=== PATIENT | male | born 1975 | race Caucasian/White ===

== ENCOUNTER 2016-08-04 17:24 | Emergency (ER) | payer BC, MEDICAID ==
[2016-08-04] MEDS ORDERED: IBUPROFEN 400 MG TABLET PO ONE (18:27)
[2016-08-04] MEDS ORDERED: CLINDAMYCIN 600MG/50ML PREMIX 600 MG in DEXTROSE 1 BAG IV ONE (18:27)
--- NOTE | 2016-08-04 18:31 | Emergency Department Record ---
History of Present Illness - General Stated complaint: SPIDER BITE/RASH Time Seen by Provider: 08/04/16 18:26 Source: Patient Mode of Arrival: Ambulatory Limitations: No limitations - History of Present Illness Initial comments: 41 yo male presents to ED with a CC of redness and swelling from a possible "spider bite" that began 2 days ago. Patient reports that his redness and swelling worsened today extending up the upper arm, states "I just don't feel well", denies fevers, chills, or weakness. Patient reports a history of psoriatic arthritis, but denies the use of immuno-suppressant medications. MD complaint: Insect bite/sting Onset/Timin -: Days(s) Hx Tetanus Toxoid Vaccination: Yes Year of Tetanus Vaccination: 2012 Location: [facility] Severity: Moderate Quality: Burning Consistency: Constant Improves with: None Worsens with: None Associated symptoms: Denies other symptoms Treatments Prior to Arrival: None - Related Data Previous Rx's Medication Instructions Recorded Clindamycin HCl [Cleocin HCl] 300 mg PO QID #40 capsule 08/04/16 Allergies Allergy/AdvReac Type Severity Reaction Status Date / Time trimethobenzamide HCl Allergy Severe DIFFICULTY Verified 08/04/16 18:31 [From Tigan] BREATHING Penicillins Allergy Intermediate HIVES Verified 08/04/16 18:31 Sulfa (Sulfonamide Allergy Intermediate HIVES Verified 08/04/16 18:31 Antibiotics) Review of Systems Constitutional: Reports: Malaise. Denies: Chills, Fever, Night sweats Eyes: Denies: Eye discharge, Eye pain ENT: Denies: Congestion, Ear pain, Epistaxis Respiratory: Denies: Cough, Dyspnea Cardiovascular: Denies: Chest pain, Dyspnea on exertion Endocrine: Denies: Fatigue, Heat or cold intolerance Gastrointestinal: Denies: Abdominal pain, Nausea, Vomiting Genitourinary: Denies: Incontinence, Retention Musculoskeletal: Denies: Arthralgia, Back pain, Gout, Joint swelling Skin: Reports: Change in color (redness). Denies: Bruising, Change in hair/ nails Neurological: Denies: Abnormal gait, Confusion, Headache, Tingling Psychiatric: Denies: Anxiety Hematological/Lymphatic: Denies: Anemia, Blood Clots Past Medical History - SOCIAL HISTORY Smoking Status: Current every day smoker - RESPIRATORY Hx Respiratory Disorders: No - CARDIOVASCULAR Hx Irregular Heartbeat: Yes - NEURO Hx Neuro Disorders: No - GI Hx GI Disorders: No - Hx Genitourinary Disorders: No - ENDOCRINE Hx Endocrine Disorders: No - MUSCULOSKELETAL Hx Musculoskeletal Disorders: Yes Hx Arthritis: Yes (psoriatic) Comment:: degenerative bone disease - PSYCH Hx Anxiety: Yes - HEMATOLOGY/ONCOLOGY Hx Hematology/Oncology Disorders: No Family Medical History Hx Cancer: Mother *Cancer Comment: melanoma Physical Exam - General General Appearance: Alert, Oriented x3, Cooperative Limitations: No limitations - Head Head exam: Atraumatic, Normocephalic, Normal inspection Head exam detail: negative: Abrasion, Contusion, Lantigua's sign, General tenderness, Hematoma, Laceration - Eye Eye exam: Normal appearance. negative: Conjunctival injection, Periorbital swelling, Periorbital tenderness, Scleral icterus - ENT Ear exam: negative: Auricular hematoma, Auricular trauma Nasal Exam: negative: Active bleeding, Discharge, Dried blood, Foreign body Mouth exam: negative: Drooling, Laceration, Muffled voice, Tongue elevation - Neck Neck exam: Normal inspection. negative: Tenderness - Respiratory Respiratory exam: Normal lung sounds bilaterally. negative: Respiratory distress, Rhonchi, Stridor, Wheezes - Cardiovascular Cardiovascular Exam: Regular rate, Normal rhythm, Normal heart sounds Peripheral Pulses: 3+: Radial (R) - GI/Abdominal GI/Abdominal exam: Soft. negative: Rebound, Rigid, Tenderness - Rectal Rectal exam: Deferred - exam: Deferred - Extremities Extremities exam: Tenderness, Other (STS, erythema, and edema originating from the dorsal proximal forearm and extending to the mid-upper arm proximally, mid- to-distal forearm distally, no evidence for compartment syndrom on examination, strong distal radial pulse. No abscess is present.). negative: Calf tenderness , Pedal edema - Back Back exam: Denies: CVA tenderness (R), CVA tenderness (L) - Neurological Neurological exam: Alert, Normal gait, Oriented X3 - Psychiatric Psychiatric exam: Normal affect, Normal mood Course - Reevaluation(s) Reevaluation #1: 08/04/16 19:31 Labs reviewed, CRP 5.2, otherwise labs are grossly unremarkable for an acute process. Discussed admission with the patient, patient declined due to numerous obligations at home. Patient is willing to return for repeat antibiotics in 12 hours, Clindamycin sent to pharmacy for continued outpatient treatment. Cellulitis was outlined prior to discharge as well to determine progress of improvement. Medical Decision Making - Lab Data Result diagrams: 08/04/16 18:57 08/04/16 18:44 Disposition Disposition: Discharge Clinical Impression: Cellulitis of right upper extremity Disposition: Home, Self-Care Condition: (2) Stable Instructions: Cellulitis (ED) Additional Instructions: Return to ED in 12 hours for repeat examination and repeat antibiotics. Clindamicin as directed. Follow-up with your family doctor in 1-3 days as directed. Prescriptions: Clindamycin HCl [Cleocin HCl] 300 mg PO QID #40 capsule Forms: Patient Portal Access Time of Disposition: 19:34
[2016-08-04 18:53] LABS: BASO % 0.2 % (0-6); EOS % 6.8 % (0-6); GRAN % 64.4 % (47-80); HEMATOCRIT 41.1 % (42.0-52.0); HEMOGLOBIN 13.6 gm/dl (14.0-18.0); LYMPH % 18.2 % (16-45); MEAN CELL VOLUME 93.8 fl (81-97); MEAN CORPUSCULAR HGB CONC 33.1 g/dl (32-36); MONO % 10.4 % (0-9); PLATELET COUNT 176 K/uL (130-400); RED BLOOD COUNT 4.38 M/uL (4.40-5.70); RED CELL DISTRIBUTION WIDTH 12.6 % (11.5-14.5); WHITE BLOOD COUNT W/O DIFF 8.7 K/uL (4.2-12.2)
[2016-08-04 19:12] LABS: ALB/GLOB RATIO 1.3 (1.1-1.8); ALBUMIN 4.1 gm/dL (3.5-5.0); ALKALINE PHOSPHATASE 108 U/L (38-126); ALT/SGPT 44 U/L (21-72); ANION GAP 9.2 (7-16); AST/SGOT 30 U/L (17-59); BILIRUBIN,TOTAL 0.29 mg/dL (0.2-1.3); BLOOD UREA NITROGEN 20 mg/dL (9-20); C-REACTIVE PROTEIN 5.2 mg/dL (0.0-0.9); CARBON DIOXIDE 26.8 mmol/L (22-30); CREATININE 0.9 mg/dL (0.66-1.25); EST GLOMERULAR FILTRATION RATE > 60 ml/min; GLUCOSE,RANDOM 90 mg/dL (70-110); TOTAL PROTEIN 7.2 gm/dL (6.3-8.2)
[2016-08-04 19:29] LABS: ERYTHROCYTE SEDIMENTATION RATE 12 mm/hr (0-15)
[2016-08-04] MEDS ORDERED: HYDROCODONE/APAP 7.5/325MG TABLET PO ONE (19:30)
== END 2016-08-04 19:39 | disposition home or self-care (01) ==
LOC: ER 17:24
DX: L03.113 Cellulitis of right upper limb (principal)
CPT/HCPCS: 80053; 85025; 85651; 86140; 96365; 99284

== ENCOUNTER 2018-08-16 11:58 | Emergency (ER) | payer MEDICARE, MEDICAID ==
[2018-08-16] MEDS ORDERED: ONDANSETRON HCL IV 4 MG/2 ML VIAL IVP ONE (12:32)
[2018-08-16] MEDS ORDERED: HYDROMORPHONE HCL 2 MG/ML VIAL IVP ONE ×2 (12:32→14:26)
[2018-08-16 12:47] LABS: BASO % 0.2 % (0-6); EOS % 3.3 % (0-6); GRAN % 66.8 % (47-80); HEMATOCRIT 45.3 % (42.0-52.0); LYMPH % 19.2 % (16-45); MEAN CELL VOLUME 95.6 fl (81-97); MEAN CORPUSCULAR HEMOGLOBIN 31.6 pg (27-33); MEAN CORPUSCULAR HGB CONC 33.1 g/dl (32-36); MEAN PLATELET VOLUME 10.7 fl (7.4-10.4); MONO % 10.5 % (0-9); PLATELET COUNT 187 K/uL (130-400); RED BLOOD COUNT 4.74 M/uL (4.40-5.70); RED CELL DISTRIBUTION WIDTH 12.3 % (11.5-14.5)
[2018-08-16 12:58] LABS: BLOOD UREA NITROGEN 15 mg/dL (6-20); CREATININE 0.7 mg/dL (0.7-1.2); EST GLOMERULAR FILTRATION RATE > 60 mL/min
--- NOTE | 2018-08-16 12:59 | Emergency Department Record ---
History of Present Illness - General Chief complaint: Abscess Stated complaint: [place] ANAL CYST Time Seen by Provider: 08/16/18 12:24 Source: Patient Mode of Arrival: Ambulatory Limitations: No limitations - History of Present Illness Initial comments: pt c/o perirectal abscess. he states he has had them before and a surgeon removed it. 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 MD complaint: Abscess/boil Onset/Timin -: Days(s) Hx Tetanus Toxoid Vaccination: Yes Year of Tetanus Vaccination: 2012 Location: [place] Severity: Severe Severity scale (1-10): 10 Quality: Stabbing Consistency: Constant Improves with: None Worsens with: None Context: None Associated symptoms: Denies other symptoms Treatments Prior to Arrival: None - Related Data Previous Rx's Medication Instructions Recorded Clindamycin HCl [Cleocin HCl] 300 mg PO BID #20 capsule 08/16/18 Hydrocodone/Acetaminophen [[place] 1 each PO Q6HR #7 tablet 08/16/18 7.5-325 Tablet] Allergies Allergy/AdvReac Type Severity Reaction Status Date / Time iodine Allergy Severe RASH Verified 08/16/18 12:14 trimethobenzamide HCl Allergy Severe DIFFICULTY Verified 08/16/18 12:14 [From Tigan] BREATHING Penicillins Allergy Intermediate HIVES Verified 08/16/18 12:14 Sulfa (Sulfonamide Allergy Intermediate HIVES Verified 08/16/18 12:14 Antibiotics) Travel Screening - Travel/Exposure Within Last 30 Days Have you traveled within the last 30 days?: No Review of Systems Reviewed: No additional complaints except as noted below Constitutional: Reports: As per HPI. Denies: Chills, Fever, Malaise, Night sweats, Weakness, Weight change Eyes: Reports: As per HPI. Denies: Eye discharge, Eye pain, Photophobia, Vision change ENT: Reports: As per HPI. Denies: Congestion, Dental pain, Ear pain, Epistaxis , Hearing loss, Throat pain Respiratory: Reports: As per HPI. Denies: Cough, Dyspnea, Hemoptysis, Stridor, Wheezes Cardiovascular: Reports: As per HPI. Denies: Arrhythmia, Chest pain, Dyspnea on exertion, Edema, Murmurs, Orthopnea, Palpitations, Paroxysmal nocturnal dyspnea, Rheumatic Fever, Syncope Endocrine: Reports: As per HPI. Denies: Fatigue, Heat or cold intolerance, Polydipsia, Polyuria Gastrointestinal: Reports: As per HPI. Denies: Abdominal pain, Constipation, Diarrhea, Hematemesis, Hematochezia, Melena, Nausea, Vomiting Genitourinary: Reports: As per HPI. Denies: Dysuria, Frequency, Hematuria, Incontinence, Retention, Testicular pain, Testicular mass, Urgency Musculoskeletal: Reports: As per HPI. Denies: Arthralgia, Back pain, Gout, Joint swelling, Myalgia, Neck pain Skin: Reports: As per HPI. Denies: Bruising, Change in color, Change in hair/ nails, Lesions, Pruritus, Rash Neurological: Reports: As per HPI. Denies: Abnormal gait, Confusion, Headache, Numbness, Paresthesias, Seizure, Tingling, Tremors, Vertigo, Weakness Psychiatric: Reports: As per HPI. Denies: Anxiety, Auditory hallucinations, Depression, Homicidal thoughts, Suicidal thoughts, Visual hallucinations Hematological/Lymphatic: Reports: As per HPI. Denies: Anemia, Blood Clots, Easy bleeding, Easy bruising, Swollen glands Past Medical History - SOCIAL HISTORY Smoking Status: Current every day smoker Alcohol Use: None Drug Use: None - RESPIRATORY Hx Respiratory Disorders: No - CARDIOVASCULAR Hx Cardio Disorders: Yes Hx Irregular Heartbeat: Yes - NEURO Hx Neuro Disorders: No - GI Hx GI Disorders: No - Hx Genitourinary Disorders: No - ENDOCRINE Hx Endocrine Disorders: No - MUSCULOSKELETAL Hx Musculoskeletal Disorders: Yes Hx Arthritis: Yes (psoriatic) Comment:: degenerative bone disease - PSYCH Hx Psych Problems: Yes Hx Anxiety: Yes - HEMATOLOGY/ONCOLOGY Hx Hematology/Oncology Disorders: No Family Medical History Any Significant Family History?: Yes Hx Cancer: Mother *Cancer Comment: melanoma Physical Exam - General General Appearance: Alert, Oriented x3, Cooperative, Mild distress - Head Head exam: Normal inspection - Eye Eye exam: Normal appearance, PERRL, EOMI Pupils: Normal accommodation - ENT ENT exam: Normal exam, Mucous membranes moist, Normal external ear exam, Normal orophraynx Ear exam: Normal external inspection. negative: External canal tenderness Nasal Exam: Normal inspection. negative: Discharge, Sinus tenderness Mouth exam: Normal external inspection, Tongue normal Teeth exam: Normal inspection. negative: Dental caries Throat exam: Normal inspection. negative: Tonsillar erythema, Tonsillar exudate - Neck Neck exam: Normal inspection, Full ROM. negative: Tenderness - Respiratory Respiratory exam: Normal lung sounds bilaterally. negative: Respiratory distress - Cardiovascular Cardiovascular Exam: Regular rate, Normal rhythm, Normal heart sounds - GI/Abdominal GI/Abdominal exam: Soft, Normal bowel sounds. negative: Tenderness - Rectal Rectal exam: Tenderness, Other (swelling and tenderness surrounding rectum w erythema) - exam: Deferred - Extremities Extremities exam: Normal inspection, Full ROM, Normal capillary refill. negative: Tenderness - Back Back exam: Reports: Normal inspection, Full ROM. Denies: Muscle spasm, Rash noted, Tenderness - Neurological Neurological exam: Alert, CN II-XII intact, Normal gait, Oriented X3 - Psychiatric Psychiatric exam: Normal affect, Normal mood - Skin Skin exam: Dry, Intact, Normal color, Warm Course Vital Signs 08/16/18 12:15 Temperature 98.1 F Pulse Rate 109 H Respiratory 18 Rate Blood Pressure 143/96 Pulse Ox 95 Medical Decision Making - Lab Data Result diagrams: 08/16/18 12:35 08/16/18 12:35 Lab Results 08/16/18 Range/Units 12:35 WBC 11.0 (4.2-12.2) K/uL RBC 4.74 (4.40-5.70) M/uL Hgb 15.0 (14.0-18.0) gm/dl Hct 45.3 (42.0-52.0) % MCV 95.6 (81-97) fl MCH 31.6 (27-33) pg MCHC 33.1 (32-36) g/dl RDW 12.3 (11.5-14.5) % Plt Count 187 (130-400) K/uL MPV 10.7 H (7.4-10.4) fl Gran % 66.8 (47-80) % Lymphocytes % 19.2 (16-45) % Monocytes % 10.5 H (0-9) % Eosinophils % 3.3 (0-6) % Basophils % 0.2 (0-6) % Disposition Disposition: Discharge Clinical Impression: Perirectal abscess Disposition: Home, Self-Care Condition: (1) Good Instructions: Rectal Abscess (ED) Additional Instructions: follow up at 7:[address] hobson without fail.npo after midnight Prescriptions: Hydrocodone/Acetaminophen [[place] 7.5-325 Tablet] 1 each PO Q6HR #7 tablet Clindamycin HCl [Cleocin HCl] 300 mg PO BID #20 capsule Referrals: Kehinde Hobson [DOCTOR OF OSTEOPATH] - [facility] [Provider Group] Forms: Patient Portal Access Quality - Quality Measures Quality Measures: N/A - Blood Pressure Screening Does Patient Have Any of the Following: No Blood Pressure Classification: Hypertensive Reading Systolic Measurement: 143 Diastolic Measurement: 96 Screening for High Blood Pressure: < First Hypertensive BP, F/U Documented > [ G8950] First Hypertensive Follow-up Interventions: Follow-up with rescreen GT 1 day and LT 4 weeks.
[2018-08-16 13:01] LABS: GLUCOSE,RANDOM 103 mg/dL (74-109)
--- NOTE | 2018-08-18 05:22 | CT SCAN REPORT ---
EXAM: CT SCAN OF THE PELVIS HISTORY: PATIENT HAS A HISTORY OF PERIANAL CYST. TECHNIQUE: Serial axial CT scan of the pelvis was performed at 3.75 mm intervals from the iliac crest to the pubic symphysis without the use of intravenous or oral contrast. Comparison: X-ray of the pelvis dated 01/21/14 is provided. FINDINGS: The visualized bowel gas pattern is nonspecific and nonobstructive. There is no CT evidence of free intraperitoneal fluid or free intraperitoneal air. The patient has a subtle area of perianal soft tissue thickening measuring approximately 2 cm in AP dimension x 9 mm in transverse dimension. This finding may represent the patient's given clinical history of perianal cyst. No clear communication with the anus is noted. Again, there is no significant colonic wall thickening or small bowel wall thickening to suggest an inflammatory bowel disease. The urinary bladder and prostate are unremarkable. The contour, caliber of the noncontrasted pelvic arteries are within normal limits. There is no CT evidence of retroperitoneal lymphadenopathy. Bone windows demonstrate no CT evidence of a fracture or dislocation of the visualized osseous structures of the pelvis. IMPRESSION: SUBTLE FOCUS OF ASYMMETRIC SOFT TISSUE THICKENING IS NOTED WITHIN THE RIGHT PERIANAL SPACE WHICH MAY REPRESENT THE PATIENT'S GIVEN CLINICAL HISTORY OF PERIANAL CYST. NO OBVIOUS COMMUNICATION TO THE ANUS OR RECTUM IS NOTED. JOB NUMBER: [id number] [facility]
== END 2018-08-16 15:30 | disposition home or self-care (01) ==
LOC: ER 11:58
DX: K61.1 Rectal abscess (principal); F17.210 Nicotine dependence, cigarettes, uncomplicated
CPT/HCPCS: 72192; 80048; 85025; 96374; 96375; 96376; 99284; J2405

== ENCOUNTER 2018-12-08 20:55 | Emergency (ER) | payer MEDICARE, MEDICAID ==
--- NOTE | 2018-12-08 23:00 | Emergency Department Record ---
History of Present Illness - General Chief Complaint: Laceration(s) Stated Complaint: SPLIT LIP Time Seen by Provider: 12/08/18 21:56 Source: Patient Mode of Arrival: Ambulatory Limitations: No limitations - History of Present Illness Initial Commments: pt had a bar snap back and hit him in the lip when he was attempting to get a lug nut off. Onset/Timin -: Minutes(s) Location: Face Place: Home Context: Accidental Associated Symptoms: None Treatments Prior to Arrival: Cold therapy - Carlos Coma Scale Eye Response: (4) Open spontaneously Motor Response: (6) Obeys commands Verbal Response: (5) Oriented Carlos Total: 15 - Related Data Hx Tetanus Toxoid Vaccination: Yes Year of Tetanus Vaccination: 2012 Previous Rx's Medication Instructions Recorded Cephalexin [Keflex] 500 mg PO QID #20 cap 12/08/18 Allergies Allergy/AdvReac Type Severity Reaction Status Date / Time iodine Allergy Severe RASH Verified 12/08/18 21:15 trimethobenzamide HCl Allergy Severe DIFFICULTY Verified 12/08/18 21:15 [From Tigan] BREATHING Penicillins Allergy Intermediate HIVES Verified 12/08/18 21:15 Sulfa (Sulfonamide Allergy Intermediate HIVES Verified 12/08/18 21:15 Antibiotics) Travel Screening - Travel/Exposure Within Last 30 Days Have you traveled within the last 30 days?: No - Travel/Exposure Within Last Year Have you traveled outside the [place] in the last year?: No - Additonal Travel Details Have you been exposed to anyone with a communicable illness?: No - Travel Symptoms Symptom Screening: None Review of Systems Reviewed: No additional complaints except as noted below Constitutional: Reports: As per HPI. Denies: Chills, Fever, Malaise, Night sweats, Weakness, Weight change Eyes: Reports: As per HPI. Denies: Eye discharge, Eye pain, Photophobia, Vision change ENT: Reports: As per HPI. Denies: Congestion, Dental pain, Ear pain, Epistaxis, Hearing loss, Throat pain Respiratory: Reports: As per HPI. Denies: Cough, Dyspnea, Hemoptysis, Stridor, Wheezes Cardiovascular: Reports: As per HPI. Denies: Arrhythmia, Chest pain, Dyspnea on exertion, Edema, Murmurs, Orthopnea, Palpitations, Paroxysmal nocturnal dyspnea, Rheumatic Fever, Syncope Endocrine: Reports: As per HPI. Denies: Fatigue, Heat or cold intolerance, Polydipsia, Polyuria Gastrointestinal: Reports: As per HPI. Denies: Abdominal pain, Constipation, Diarrhea, Hematemesis, Hematochezia, Melena, Nausea, Vomiting Genitourinary: Reports: As per HPI. Denies: Dysuria, Frequency, Hematuria, Incontinence, Retention, Testicular pain, Testicular mass, Urgency Musculoskeletal: Reports: As per HPI. Denies: Arthralgia, Back pain, Gout, Joint swelling, Myalgia, Neck pain Skin: Reports: As per HPI. Denies: Bruising, Change in color, Change in hair/nails, Lesions, Pruritus, Rash Neurological: Reports: As per HPI. Denies: Abnormal gait, Confusion, Headache, Numbness, Paresthesias, Seizure, Tingling, Tremors, Vertigo, Weakness Psychiatric: Reports: As per HPI. Denies: Anxiety, Auditory hallucinations, Depression, Homicidal thoughts, Suicidal thoughts, Visual hallucinations Hematological/Lymphatic: Reports: As per HPI. Denies: Anemia, Blood Clots, Easy bleeding, Easy bruising, Swollen glands Past Medical History - SOCIAL HISTORY Smoking Status: Current every day smoker Alcohol Use: Occasional Drug Use: Occasional Drug Use Detail:: Marijuana - RESPIRATORY Hx Respiratory Disorders: No - CARDIOVASCULAR Hx Cardio Disorders: Yes Hx Irregular Heartbeat: Yes - NEURO Hx Neuro Disorders: No - GI Hx GI Disorders: Yes Hx Reflux: Yes - Hx Genitourinary Disorders: No - ENDOCRINE Hx Endocrine Disorders: No - MUSCULOSKELETAL Hx Musculoskeletal Disorders: Yes Hx Arthritis: Yes (psoriatic) Comment:: degenerative bone disease - PSYCH Hx Psych Problems: Yes Hx Anxiety: Yes Hx Depression: Yes - HEMATOLOGY/ONCOLOGY Hx Hematology/Oncology Disorders: No Family Medical History Any Significant Family History?: Yes Hx Cancer: Mother *Cancer Comment: melanoma Physical Exam - General General Appearance: Alert, Oriented x3, Cooperative, Mild distress - Head Head exam: Normal inspection Head exam detail: Laceration Image of Face/Head: 1 - vshaped laceration to lower lip, 3.5cm - Eye Eye exam: Normal appearance, PERRL, EOMI Pupils: Normal accommodation - ENT ENT exam: Normal exam, Mucous membranes moist, Normal external ear exam, Normal orophraynx Ear exam: Normal external inspection. negative: External canal tenderness Nasal Exam: Normal inspection. negative: Discharge, Sinus tenderness Mouth exam: Normal external inspection, Tongue normal Teeth exam: Normal inspection. negative: Dental caries Throat exam: Normal inspection. negative: Tonsillar erythema, Tonsillar exudate - Neck Neck exam: Normal inspection, Full ROM. negative: Tenderness - Respiratory Respiratory exam: Normal lung sounds bilaterally. negative: Respiratory distress - Cardiovascular Cardiovascular Exam: Regular rate, Normal rhythm, Normal heart sounds - GI/Abdominal GI/Abdominal exam: Soft, Normal bowel sounds. negative: Tenderness - Rectal Rectal exam: Deferred - exam: Deferred - Extremities Extremities exam: Normal inspection, Full ROM, Normal capillary refill. negative: Tenderness - Back Back exam: Reports: Normal inspection, Full ROM. Denies: Muscle spasm, Rash noted, Tenderness - Neurological Neurological exam: Alert, CN II-XII intact, Normal gait, Oriented X3 - Psychiatric Psychiatric exam: Normal affect, Normal mood - Skin Skin exam: Dry, Intact, Normal color, Warm Type of lesion: Laceration Distribution of rash: Face Course Vital Signs 12/08/18 12/08/18 21:10 21:13 Temperature 99.0 F 99.1 F Pulse Rate 106 H Pulse Rate [ 103 H Pulse Ox Probe] Respiratory 20 20 Rate Blood Pressure 164/118 Blood Pressure 164/118 [Left Arm] Pulse Ox 99 97 Disposition Disposition: Discharge Clinical Impression: Laceration of lip Qualifiers: Encounter type: initial encounter Qualified Code(s): S01.511A - Laceration without foreign body of lip, initial encounter Disposition: Home, Self-Care Condition: (1) Good Instructions: Laceration (ED) Additional Instructions: sutures out in 6 days. soft diet. avoid salty foods. ice to lip Prescriptions: Cephalexin [Keflex] 500 mg PO QID #20 cap Quality - Quality Measures Quality Measures: N/A - Blood Pressure Screening Does Patient Have Any of the Following: No Blood Pressure Classification: Hypertensive Reading Systolic Measurement: 164 Diastolic Measurement: 118 Screening for High Blood Pressure: < First Hypertensive BP, F/U Documented > [G8950] First Hypertensive Follow-up Interventions: Follow-up with rescreen GT 1 day and LT 4 weeks. Laceration - Head - Time Out Informed consent:: Completed under emergency circumstance & prohibited informed consent Confirmed first & last name, , procedure, correct site?: Yes Start Date: 12/08/18 Start Time: 22:25 - Location Location of laceration:: Lower, Medial Laceration located on:: Lip Length of laceration:: 3.5 Length of laceration:: cm - Clean and Prep Laceration cleaning method:: Cleansed Laceration cleaning agent:: Normal Saline - Topical Anesthetic Lidocaine dose:: 1 mL Lidocaine used:: 2% - Medication Medicated for procedure?: No - Procedural Detail Tissue detail:: Torn, Devitalized Foreign body in the wound?: No Undermining was preformed?: No Stent applied?: No Lyn applied?: No (7 simple interrupted sutures w 6.0proline w good approximation, v shaped)
[2018-12-08] MEDS ORDERED: CEPHALEXIN 500 MG CAPSULE PO STA (23:02)
[2018-12-08] MEDS ORDERED: Diph,Pert(Acell),Tet Vac 0.5 ML SYR IM ONE (23:02)
== END 2018-12-08 23:12 | disposition home or self-care (01) ==
LOC: ER 20:55
DX: S01.511A Laceration without foreign body of lip, initial encounter (principal); W22.8XXA Striking against or struck by other objects, initial encounter; Y92.009 Unspecified place in unspecified non-institutional (private) residence as the place of occurrence of the external cause; F17.210 Nicotine dependence, cigarettes, uncomplicated
CPT/HCPCS: 12013; 90715; 96372; 99283